=== PATIENT | female | born 1955 | race Two or more races ===

== ENCOUNTER 2024-03-05 13:55 | Emergency (ER) | payer OTHER ==
[~2024-03-05] VITALS: Ht 157.5 cm; Wt 136.3 kg
[2024-03-05 15:22] LABS: Alanine Aminotransferase 15 U/L (7-40); Albumin 4.4 g/dL (3.2-4.8); Alkaline Phosphatase 84 U/L (46-116); Anion Gap 10 (5-15); Aspartate Aminotransferase 17 U/L (13-40); BUN/Creatinine Ratio 25.7 (10.0-20.0); Bilirubin, Total 0.6 mg/dL (0.2-1.0); Blood Urea Nitrogen 35 mg/dL (9-23); Calcium 10.6 mg/dL (8.7-10.4); Carbon Dioxide 24 mmol/L (20-30); Chloride 104 mmol/L (98-107); Glucose 111 mg/dL (74-106); Lipase 34 U/L (12-53); Potassium 4.1 mmol/L (3.5-5.1); Sodium 138 mmol/L (136-145); Total Protein 7.7 g/dL (5.7-8.2)
[2024-03-05 16:15] LABS: Basophils # (auto) 0 10 ^3/uL (0-0.2); Basophils % (auto) 0.6 % (0.0-2.0); Eosinophils # (auto) 0.2 10 ^3/uL (0-0.8); Hematocrit 39.5 % (36.0-46.0); Hemoglobin 13.7 g/dL (12.2-16.2); Lymphocytes # (auto) 1.8 10 ^3/uL (0.4-5.4); Lymphocytes % (auto) 29.8 % (10.0-50.0); Mean Corpuscular Hemoglobin 31.1 pg (28.0-32.0); Mean Corpuscular Hgb Conc. 34.6 g/dL (32.0-36.0); Mean Corpuscular Volume 89.8 fL (80.0-100.0); Monocytes # (auto) 0.5 10 ^3/uL (0-1.3); Monocytes % (auto) 7.9 % (0.0-12.0); Neutrophils # (auto) 3.5 10 ^3/uL (1.6-8.6); Neutrophils % (auto) 57.7 % (37.0-80.0); Nucleated Red Blood Cells % 0.1 %; Red Cell Distribution Width 13.4 % (11.8-14.3)
[2024-03-05 16:35] LABS: Urine Bacteria None Seen /hpf (None Seen)
[2024-03-05 16:48] LABS: Urine Blood Negative /uL (Negative); Urine Clarity Clear (Clear); Urine Color Light-Yellow (Yellow); Urine Protein, UAD Negative (Negative); Urine Urobilinogen Normal (Negative); Urine WBC 6 /hpf (0 - 5)
[2024-03-05 21:19] VITALS: BP 99/62; PULSE 75; RESP 18; TEMP 97.9; O2SAT 96
[2024-03-05] MEDS: METOCLOPRAMIDE HCL 5MG/ml INJ 2ml VIAL IM ONE (21:22)
[2024-03-05] MEDS ORDERED: LEVO500T91 PO (21:52)
[2024-03-05] MEDS ORDERED: METO-281 PO (21:52)
== END 2024-03-05 22:29 | disposition home or self-care (01) ==
LOC: ER 13:55
DX: N39.0 Urinary tract infection, site not specified (principal)
CPT/HCPCS: 36415; 80053; 81001; 83605; 83690; 83880; 84484; 85025; 87086; 96372; 99283; J2765

== ENCOUNTER 2024-11-20 18:49 | Inpatient (IN) | payer OTHER ==
[~2024-11-20] VITALS: Ht 154.9 cm; Wt 140.5 kg
[~2024-11-20 18:49] MED LIST: LEVO500T91 PO; METO-281 PO
--- NOTE | 2024-11-20 20:56 | DVH ---
CHEST RADIOGRAPH Indication: gen weak Technique: Single frontal view of the chest was obtained COMPARISON: None FINDINGS: Lines and Tubes: None Lungs: Clear Pleura: No effusion. No pneumothorax. Cardiomediastinal contours: Cardiomegaly Bones: Unremarkable IMPRESSION: 1. No acute disease.
--- NOTE | 2024-11-20 20:58 | DVH ---
CLINICAL INDICATION: pain TECHNIQUE: 3 views of the right knee. Comparison: None FINDINGS/IMPRESSION: There is no evidence of acute fracture or dislocation. Severe tricompartmental degenerative arthrosis of the right knee.
--- NOTE | 2024-11-20 20:59 | DVH ---
EXAM: XY L KNEE 3V XRAY CLINICAL HISTORY: pain COMPARISON: None TECHNIQUE: XY L KNEE 3V XRAY Findings/Impression: 3 views of the left knee. There is no evidence of an acute fracture, dislocation, blastic, or lytic lesions. Marked joint space narrowing and osteoarthritis. No radiopaque foreign bodies. No joint effusion or superficial soft tissue abnormalities.
[2024-11-20 21:24] LABS: Basophils # (auto) 0 10 ^3/uL (0-0.2); Basophils % (auto) 0.4 % (0.0-2.0); Eosinophils # (auto) 0.2 10 ^3/uL (0-0.8); Eosinophils % (auto) 1.6 % (0.0-7.0); Hematocrit 38.5 % (36.0-46.0); Lymphocytes # (auto) 1.1 10 ^3/uL (0.4-5.4); Lymphocytes % (auto) 11.6 % (10.0-50.0); Mean Corpuscular Hemoglobin 30.4 pg (28.0-32.0); Mean Corpuscular Hgb Conc. 33.7 g/dL (32.0-36.0); Monocytes # (auto) 0.6 10 ^3/uL (0-1.3); Monocytes % (auto) 6.3 % (0.0-12.0); Neutrophils # (auto) 7.5 10 ^3/uL (1.6-8.6); Neutrophils % (auto) 80.1 % (37.0-80.0); Platelet Count (auto) 264 10^3/uL (140-450); Red Blood Cells 4.27 10^6/uL (4.0-5.20); Red Cell Distribution Width 14.1 % (11.8-14.3); White Blood Cell 9.4 10^3/uL (4.4-10.8)
[2024-11-20 21:35] LABS: Chloride 104 mmol/L (98-107); Potassium 4.7 mmol/L (3.5-5.1); Sodium 138 mmol/L (136-145)
[2024-11-20 21:36] LABS: Anion Gap 8 (5-15); Calcium 10.1 mg/dL (8.7-10.4); Carbon Dioxide 26 mmol/L (20-31)
[2024-11-20 21:41] LABS: BUN/Creatinine Ratio 22.8 (10.0-20.0); Blood Urea Nitrogen 23 mg/dL (9-23)
[2024-11-20 21:43] LABS: Creatine Kinase IFCC 83 U/L (34-145)
[2024-11-20 21:46] LABS: Glucose 191 mg/dL (74-106)
--- NOTE | 2024-11-20 23:44 | ED.PDOC ---
History of Present Illness HPI Comments 69-year-old female with history of diabetes, neuropathy, chronic knee pain, GERD, hypertension and morbid obesity brought in by EMS from home for evaluation of severe bilateral knee pain and inability to ambulate. Patient states that she is mostly wheelchair-bound but usually is able to ambulate a few steps and stand and transfer, however over the past several days she has been unable to stand and transfer or ambulate due to severe knee pain. She also notes subjective fever, dysuria, urinary frequency and a rash in her lower abdominal/inguinal area and left upper thigh area. She states she had a fever a few days ago. She denies any fall or trauma. She states that she is unable to perform activities of daily living due to her symptoms, and that her family is unable to care for her at home. Chief Complaint: Failure to Thrive Time Seen by MD: 20:09 Reviewed Notes: Nurses Notes, Lockstitch Sleeve Setter Notes Allergies: Coded Allergies: NO KNOWN ALLERGIES (Unverified , 03/05/24) Home Meds Active Scripts Metoclopramide Hcl (Reglan) 10 Mg Tab, 10 MG PO Q8HP PRN, #15 TAB Prov:ROCIO GARRETT PAC 03/05/24 Levofloxacin Hemihydrate (LEVAQUIN 500 MG) 500 Mg Tab, 1 TAB PO DAILY for 5 Days, #5 TAB Prov:ROCIO GARRETT PAC 03/05/24 Information Source: Patient, Emergency Med Personnel Mode of Arrival: EMS Past Medical History PAST MEDICAL HISTORY: DM, GERD, HTN, UTI'S Past Medical History (Other): Morbid obesity, chronic bilateral knee pain Surgical History: EMPLOYMENT RECRUITER History: No Pertinent EMPLOYMENT RECRUITER History Family History Family History: Reviewed,noncontributory to illness, No family hx of Cancer, No family hx of DM, No family hx of Heart krysten, No family hx of HTN, No family hx ofKidney krysten, No family hx of Liver krysten, No family hx of Lung krysten, No family hx of Stroke Social History Smoker: Non-Smoker Alcohol: Denies ETOH Use Drugs: Denies Drug Use Lives In: Home All Other Systems: Reviewed and Negative (Comprehensive systems review obtained and negative except for what is stated in the HPI.) Physical Exam General Appearance: No Apparent Distress, Obese HEENT: Other (Pupils and face symmetric. Moist mucous membranes.) Neck: Full Range of Motion, Normal Inspection Respiratory: Lungs Clear, No Accessory Muscle Use, No Respiratory Distress, Normal Breath Sounds Cardiovascular: No Edema, No JVD, Regular Rate/Rhythm Breast Exam: Deferred Gastrointestinal: Non Tender, Soft Genitalia: Deferred Pelvic: Deferred Rectal: Deferred Extremities: Normal range of motion, No pedal edema Neurologic: Alert (Oriented x4), Normal Affect, Normal Mood, Other (Moves all extremities. No gross focal deficit.) Cerebellar Function: NOT DONE Reflexes: NOT DONE Skin: Dry, Rash (Erythematous confluent rash in the lower abdominal and inguinal areas bilaterally. The left inguinal rash extends to the proximal/lateral upper thigh area. These areas are tender, erythematous and warm. No fluctuance or discharge.), Warm Lymphatic: NOT DONE Was a procedure done? Was a procedure done?: No Differential Dx Considerations may include: Knee arthritis, fracture, dislocation, soft tissue injury, UTI, kidney stone, electrolyte imbalance, sepsis, cellulitis, among others X-Ray, Labs, Meds, VS Vital Signs Date Time Temp Pulse Resp B/P (MAP) Pulse Ox O2 Delivery O2 Flow Rate FiO2 11/20/24 19:04 98.2 84 17 125/77 (93) 92 Lab Test 11/20/24 20:58 Range/Units White Blood Count 9.4 4.4-10.8 10^3/uL Red Blood Count 4.27 4.0-5.20 10^6/uL Hemoglobin 13.0 12.2-16.2 g/dL Hematocrit 38.5 36.0-46.0 % Mean Corpuscular Volume 90.0 80.0-100.0 fL Mean Corpuscular Hemoglobin 30.4 28.0-32.0 pg Mean Corpuscular Hemoglobin Concent 33.7 32.0-36.0 g/dL Red Cell Distribution Width 14.1 11.8-14.3 % Platelet Count 264 140-450 10^3/uL Mean Platelet Volume 6.6 L 6.9-10.8 fL Neutrophils (%) (Auto) 80.1 H 37.0-80.0 % Lymphocytes (%) (Auto) 11.6 10.0-50.0 % Monocytes (%) (Auto) 6.3 0.0-12.0 % Eosinophils (%) (Auto) 1.6 0.0-7.0 % Basophils (%) (Auto) 0.4 0.0-2.0 % Neutrophils # (Auto) 7.5 1.6-8.6 10 ^3/uL Lymphocytes # (Auto) 1.1 0.4-5.4 10 ^3/uL Monocytes # (Auto) 0.6 0-1.3 10 ^3/uL Eosinophils # (Auto) 0.2 0-0.8 10 ^3/uL Basophils # (Auto) 0 0-0.2 10 ^3/uL Nucleated Red Blood Cells 0.0 % Sodium Level 138 136-145 mmol/L Potassium Level 4.7 3.5-5.1 mmol/L Chloride Level 104 98-107 mmol/L Carbon Dioxide Level 26 20-31 mmol/L Anion Gap 8 5-15 Blood Urea Nitrogen 23 9-23 mg/dL Creatinine 1.01 0.550-1.02 mg/dL Glomerular Filtration Rate Calc 60 >90 mL/min BUN/Creatinine Ratio 22.8 H 10.0-20.0 Serum Glucose 191 H 74-106 mg/dL Lactic Acid Level 0.9 0.4-2.0 mmol/L Calcium Level 10.1 8.7-10.4 mg/dL Creatine Kinase 83 34-145 U/L Troponin I High Sensitivity 3 L </=34 ng/L B-Type Natriuretic Peptide 28.24 0-100 pg/mL PROCEDURE(s): CXRP - CHEST PORTABLE REASON: gen weak ORDER NUMBER(s): [id number], ACCESSION NUMBER(s): [id number] CHEST RADIOGRAPH Indication: gen weak Technique: Single frontal view of the chest was obtained COMPARISON: None FINDINGS: Lines and Tubes: None Lungs: Clear Pleura: No effusion. No pneumothorax. Cardiomediastinal contours: Cardiomegaly Bones: Unremarkable IMPRESSION: 1. No acute disease. EDURE(s): LKNE3 - L KNEE 3V XRAY REASON: pain ORDER NUMBER(s): [id number], ACCESSION NUMBER(s): [id number] EXAM: XY L KNEE 3V XRAY CLINICAL HISTORY: pain COMPARISON: None TECHNIQUE: XY L KNEE 3V XRAY Findings/Impression: 3 views of the left knee. There is no evidence of an acute fracture, dislocation, blastic, or lytic lesions. Marked joint space narrowing and osteoarthritis. No radiopaque foreign bodies. No joint effusion or superficial soft tissue abnormalities. EDURE(s): RKN3 - R KNEE 3V XRAY REASON: pain ORDER NUMBER(s): [id number], ACCESSION NUMBER(s): [id number] CLINICAL INDICATION: pain TECHNIQUE: 3 views of the right knee. Comparison: None FINDINGS/IMPRESSION: There is no evidence of acute fracture or dislocation. Severe tricompartmental degenerative arthrosis of the right knee. ATED BY: RALPH HENAO MD X-Ray, Labs, Meds, VS Comment 69-year-old female with a history of diabetes, neuropathy, chronic bilateral knee arthritis, hypertension, GERD, morbid obesity brought in by EMS from home complaining of severe knee pain making her unable to ambulate or transfer or perform most of her activities of daily living. Patient also reports dysuria, urinary frequency, fever, nausea, dizziness and a bilateral inguinal rash. Vitals remarkable for oxygen saturation 92% on room air Exam remarkable for a bilateral inguinal erythematous rash extending to the left upper lateral thigh area Rhythm strip independently interpreted by me: Sinus rhythm, rate 84, no ectopy. Chest x-ray unremarkable Left knee x-ray Findings/Impression: 3 views of the left knee. There is no evidence of an acute fracture, dislocation, blastic, or lytic les ions. Marked joint space narrowing and osteoarthritis. No radiopaque foreign bodies. No joint effusion or superficial soft tissue abnormalities. Right knee x-ray FINDINGS/IMPRESSION: There is no evidence of acute fracture or dislocation. Severe tricompartmental degenerative arthrosis of the right knee. CBC unremarkable, metabolic panel remarkable for glucose 191, troponin negative, total CK normal, BNP normal, lactate normal UA pending Patient treated with the following in the ED: Morphine 4 mg IV, Zofran 4 mg IV, Zosyn 4.5 g IV On re-evaluation, patient states pain has improved. Vitals were stable. Plan is to admit the patient for IV antibiotics to treat a presumptive UTI and cellulitis. Patient will also benefit from PT/OT evaluation and possible transfer to a half-way facility versus home health arrangements on discharge. Time of 1ST Reevaluation: 23:40 Reevaluation 1ST: Improved Patient Education/Counseling: Diagnosis, Treatment Family Education/Counseling: No Family Present Departure 1 Departure Time of Disposition: 23:00 Impression: Primary Impression: Bilateral knee pain Qualified Codes: M25.561 - Pain in right knee; M25.562 - Pain in left knee; G89.29 - Other chronic pain Additional Impressions: Cellulitis of groin, left Cellulitis of groin, right Cellulitis of left thigh UTI (urinary tract infection) Qualified Codes: N39.0 - Urinary tract infection, site not specified Risk for falls Impaired activities of daily living Disposition: ADMITTED INPATIENT Admit to: Med Surg Condition: Guarded Critical Care Note Critical Care Time?: No Stability Stability form required: No Heart Score Heart Score: Heart Score Response (Comments) Value History N/A 0 EKG N/A 0 Age N/A 0 Risk Factors N/A 0 Troponin N/A 0 Total 0 THELMA PICKENS MD Nov 20, 2024 23:44
[2024-11-21 02:06] LABS: Erythrocyte Sedimentation Rate 28 mm/hr (0-20)
--- NOTE | 2024-11-21 03:28 | DVH ---
EXAM: CT THORACIC SPINE WO CONTRAS HISTORY: FALL COMPARISON: None CTDIvol 38.59 mGy, DLP 2837.70 mGy*cm. TECHNIQUE: Multiple axial CT images of the spine were obtained using bone algorithm. Axial and coron al reformatting was done. Bone and soft tissue windows were reviewed. FINDINGS: No CT evidence of definite acute fracture, spinal dislocation, or significant appearing acute subluxa tion is seen. The visualized paraspinal soft tissues are grossly unremarkable. Multilevel degenerative changes of the spine. IMPRESSION: 1. No definite CT evidence of acute fracture or dislocation of the bony thoracic spine.
--- NOTE | 2024-11-21 03:30 | DVH ---
EXAM: CT LS SPINE WO CONTRAST HISTORY: FALL COMPARISON: None CTDIvol 38.94 mGy, DLP 2837.7 mGy*cm. TECHNIQUE: Multiple axial CT images of the spine were obtained using bone algorithm. Axial and coron al reformatting was done. Bone and soft tissue windows were reviewed. FINDINGS: No CT evidence of definite acute fracture, spinal dislocation, or significant appearing acute subluxa tion is seen. The visualized paraspinal soft tissues are grossly unremarkable. Multilevel degenerative changes of the spine disc osteophyte, facet arthropathy uncovertebral spurri ng causing significant canal narrowing and neural foraminal stenosis. IMPRESSION: 1. No definite CT evidence of acute fracture or dislocation of the bony lumbar spine. 2. Advanced spondylotic change.
[2024-11-21 03:46] LABS: Basophils # (auto) 0.1 10 ^3/uL (0-0.2); Basophils % (auto) 0.7 % (0.0-2.0); Eosinophils # (auto) 0.2 10 ^3/uL (0-0.8); Eosinophils % (auto) 2.1 % (0.0-7.0); Hematocrit 37.8 % (36.0-46.0); Hemoglobin 12.7 g/dL (12.2-16.2); Lymphocytes % (auto) 23.9 % (10.0-50.0); Mean Corpuscular Hgb Conc. 33.5 g/dL (32.0-36.0); Mean Corpuscular Volume 89.6 fL (80.0-100.0); Monocytes # (auto) 0.8 10 ^3/uL (0-1.3); Neutrophils # (auto) 5.3 10 ^3/uL (1.6-8.6); Neutrophils % (auto) 64.3 % (37.0-80.0); Nucleated Red Blood Cells % 0.1 %; Platelet Count (auto) 274 10^3/uL (140-450); Red Blood Cells 4.22 10^6/uL (4.0-5.20); Red Cell Distribution Width 14.3 % (11.8-14.3); White Blood Cell 8.3 10^3/uL (4.4-10.8)
[2024-11-21 03:51] LABS: Alanine Aminotransferase 15 U/L (7-40); Albumin 4.2 g/dL (3.2-4.8); Alkaline Phosphatase 107 U/L (46-116); Anion Gap 8 (5-15); Aspartate Aminotransferase 14 U/L (13-40); BUN/Creatinine Ratio 27.6 (10.0-20.0); Carbon Dioxide 27 mmol/L (20-31); Chloride 105 mmol/L (98-107); Potassium 4.6 mmol/L (3.5-5.1); Sodium 140 mmol/L (136-145)
[2024-11-21 03:52] LABS: Bilirubin, Total 0.6 mg/dL (0.2-1.0); Total Protein 7.1 g/dL (5.7-8.2)
[2024-11-21 03:55] LABS: Blood Urea Nitrogen 24 mg/dL (9-23); Calcium 10.5 mg/dL (8.7-10.4); Glucose 136 mg/dL (74-106)
--- NOTE | 2024-11-21 04:39 | DVHHPRES ---
History of Present Illness Resident Creating Document: STEPHANIA RICHARD RESIDENT History of Present Illness 69-year-old with past medical history of diabetes, hypertension obesity came to the ED because according to her she had a fall today. She stated that she was in the bathroom and trying to reach the commode she had a fall, landing in her buttocks at 3 pm aprox. Patient states that she is not being able to walk for months due to diabetic neuropathy and her knees are swollen since months as well, she stated that a year ago she twisted left knee. She also notes subjective fever,urinary frequency and a rash in her lower abdominal/inguinal area and left upper thigh area. She states that she is unable to perform activities of daily living due to her symptoms, and that her family is unable to care for her at home. Home meds: benazepril, metformin and aspirin 81 mg Smoke: Quit ALCOHOL: rare Drugs: None Lives: with Family Review of Systems Constitutional: No: Fever, Chills, Sweats, Weakness, Malaise, Other Eyes: No: Pain, Vision change, Conjunctivae inflammation, Eyelid inflammation, Other, Redness ENT: No: Ear pain, Ear discharge, Nose pain, Nose discharge, Nose congestion, Mouth pain, Mouth swelling, Throat pain, Throat swelling, Other Respiratory: No: Cough, Dry, Shortness of breath, SOB with excertion, Wheezing, Hemoptysis, Pleuritic Pain, Sputum, Wheezing, Other Cardiovascular: No: Chest Pain, Palpitations, Orthopnea, Paroxysmal Noc. Dyspnea, Edema, Lt Headedness, Other Gastrointestinal: No: Nausea, Vomiting, Abdominal Pain, Diarrhea, Constipation, Melena, Hematochezia, Other Genitourinary: No Dysuria; Frequency; No Incontinence, No Hematuria, No Retention, No Other Musculoskeletal: No: other, neck pain, shoulder pain, arm pain, back pain, hand pain, leg pain, foot pain Skin: No: Rash, Lesions, Jaundice, Bruising, Other Neurological: No: Weakness, Numbness, Incoordination, Change in speech, Confusion, Seizures, Other Allergies: Coded Allergies: NO KNOWN ALLERGIES (Unverified , 03/05/24) Medications Current Medications Medications Dose Ordered Sig/Nelida Route Start Time Stop Time Status Last Admin Dose Admin Ceftriaxone Sodium 50 ml @ 100 mls/hr DAILY IV 11/21/24 10:00 Acetaminophen 650 mg Q6HP PRN PO 11/21/24 00:30 Ketorolac Tromethamine 15 mg TID PRN IV 11/21/24 06:00 11/26/24 05:59 Exam Vital Signs Vital Signs Date Time Temp Pulse Resp B/P (MAP) Pulse Ox O2 Delivery O2 Flow Rate FiO2 11/20/24 19:04 98.2 84 17 125/77 (93) 92 General Appearance: Alert, Oriented X3, mild distress HEENT: Atraumatic, PERRLA, EOMI, Mucous membr. moist/pink Respiratory: Clear to auscultation, Normal air movement Cardiovascular: Regular rate, Normal S1 Abdominal: Normal bowel sounds, Soft Extremities: No clubbing, No cyanosis, Other (severe tenderness at palpation in the lumbar spine, bilateral edema in the knees, severe tenderness ) Skin: No rashes (rash in the inguinal area), No breakdown Neuro: Normal gait, Normal speech Psych/Mental Status: Mental status NL Labs/Xrays Labs Test 11/21/24 01:07 11/20/24 20:58 Range/Units White Blood Count 8.3 4.4-10.8 10^3/uL Red Blood Count 4.22 4.0-5.20 10^6/uL Hemoglobin 12.7 12.2-16.2 g/dL Hematocrit 37.8 36.0-46.0 % Mean Corpuscular Volume 89.6 80.0-100.0 fL Mean Corpuscular Hemoglobin 30.0 28.0-32.0 pg Mean Corpuscular Hemoglobin Concent 33.5 32.0-36.0 g/dL Red Cell Distribution Width 14.3 11.8-14.3 % Platelet Count 274 140-450 10^3/uL Mean Platelet Volume 7.3 6.9-10.8 fL Neutrophils (%) (Auto) 64.3 37.0-80.0 % Lymphocytes (%) (Auto) 23.9 10.0-50.0 % Monocytes (%) (Auto) 9.0 0.0-12.0 % Eosinophils (%) (Auto) 2.1 0.0-7.0 % Basophils (%) (Auto) 0.7 0.0-2.0 % Neutrophils # (Auto) 5.3 1.6-8.6 10 ^3/uL Lymphocytes # (Auto) 2.0 0.4-5.4 10 ^3/uL Monocytes # (Auto) 0.8 0-1.3 10 ^3/uL Eosinophils # (Auto) 0.2 0-0.8 10 ^3/uL Basophils # (Auto) 0.1 0-0.2 10 ^3/uL Nucleated Red Blood Cells 0.1 % Erythrocyte Sedimentation Rate 28 H 0-20 mm/hr Sodium Level 140 136-145 mmol/L Potassium Level 4.6 3.5-5.1 mmol/L Chloride Level 105 98-107 mmol/L Carbon Dioxide Level 27 20-31 mmol/L Anion Gap 8 5-15 Blood Urea Nitrogen 24 H 9-23 mg/dL Creatinine 0.87 0.550-1.02 mg/dL Glomerular Filtration Rate Calc 72 >90 mL/min BUN/Creatinine Ratio 27.6 H 10.0-20.0 Serum Glucose 136 H 74-106 mg/dL Calcium Level 10.5 H 8.7-10.4 mg/dL Total Bilirubin 0.6 0.2-1.0 mg/dL Aspartate Amino Transferase (AST) 14 13-40 U/L Alanine Aminotransferase (ALT) 15 7-40 U/L Alkaline Phosphatase 107 46-116 U/L Total Protein 7.1 5.7-8.2 g/dL Albumin 4.2 3.2-4.8 g/dL Thyroid Stimulating Hormone (TSH) 0.78 0.55-4.78 uIU/mL Lactic Acid Level 0.9 0.4-2.0 mmol/L Creatine Kinase 83 34-145 U/L Troponin I High Sensitivity 3 L </=34 ng/L C-Reactive Protein High Sensitivity 0.77 <1.0 mg/dL B-Type Natriuretic Peptide 28.24 0-100 pg/mL Assessment/Plan Assessment/Plan #Mechanical fall #Intractable pain #bone fracture ruled out #UTI? #H/o HTN #DM type 2 #Diabetic neuropathy? #Severe Physical deconditioning #Severe bilateral OA in the knees #inguinal rash: contact dermatitis Images: CT scan throco/lumbar ruled out fractures bilateral knee xray: OA No acute phase reactants elevated Admit Med/surg Pending UA and urine culture Ceftriaxone IV Pain medication Pending Hba1c Hold on BP meds for now Cream due to inguinal rash Case discussed with Dr Erwin Time spent on care 23 min Plan discussed with: Patient, Other My Orders Orders - STEPHANIA RICHARD RESIDENT Procedure Category Date Status Time Admit ADMIT 11/21/24 Transmitted 00:23 Urine Bacterial MARÍA 11/21/24 Logged Culture 00:23 Ceftriaxone 1gm/50ml PHA 11/21/24 In Process D5w (Rocephin) 10:00 Consistent DIET 11/21/24 Transmitted Carb(Ccho)Diabetes Breakfast Acetaminophen Tablet PHA 11/21/24 In Process (Tylenol Tablet) 00:30 Ketorolac Injection PHA 11/21/24 In Process (Toradol Injection) 06:00 Ls Spine Wo Contrast CT 11/21/24 Resulted 00:[address] 11/21/24 Resulted Contras 00:56 Hemoglobin A1c LAB 11/21/24 In Process 03:22 Date of Service: Nov 21, 2024 Billing Provider: JACKIE ERWIN MD Common Visit Codes: [id number] INP/OBS CARE (HIGH) Secondary Visit Codes: [id number] CARE PLAN 30 MINUTES STEPHANIA RICHARD RESIDENT Nov 21, 2024 04:39 JACKIE ERWIN MD Nov 21, 2024 19:58
[2024-11-21] MEDS: PIPERACILLIN-TAZO 4.5GM 100 ML IV ONE (05:46)
[2024-11-21] MEDS: NYSTATIN TOPICAL CREAM 15GM TOP ONE (05:47)
[2024-11-21] MEDS: ONDANSETRON HCL 4 MG/2 ML VIAL IV ONE (05:47)
[2024-11-21] MEDS: MORPHINE SULFATE 4 MG/ML SYR/VIAL IV ONE (05:47)
[2024-11-21 05:51] VITALS: PULSE 84; RESP 19; O2SAT 97
[2024-11-21] MEDS: KETOROLAC TROMETH 30 MG/ML 1ML VIAL IV PRN (08:13)
[2024-11-21 08:21] VITALS: PULSE 83; RESP 20; O2SAT 90
[2024-11-21] MEDS: cefTRIAXone 1GM/50ML D5W 50 ML IV SCH (10:45)
--- NOTE | 2024-11-21 20:27 | DVHPNRES ---
Progress Note Date Seen: Nov 21, 2024 Resident Creating Document: GERTRUDE ODONNELL RESIDENT Medical Necessity Reason Pt with a Central, PICC or Fol: No Subjective Review of Systems 69-year-old with past medical history of diabetes, hypertension obesity came to the ED because according to her she had a fall today. She stated that she was in the bathroom and trying to reach the commode she had a fall, landing in her buttocks at 3 pm aprox. Patient states that she is not being able to walk for months due to diabetic neuropathy and her knees are swollen since months as well, she stated that a year ago she twisted left knee. She also notes subjective fever,urinary frequency and a rash in her lower abdominal/inguinal area and left upper thigh area. She states that she is unable to perform activities of daily living due to her symptoms, and that her family is unable to care for her at home. Significant lab workup revealed HGB A1c 5.9, troponin negative. Home meds: benazepril, metformin and aspirin 81 mg Smoke: Quit ALCOHOL: rare Drugs: None Lives: with Family Patient was seen today at the bedside. Cardiovascular- deny acute chest pain or shortness of breath or cough or palpitation Respiratory denies cough or short of breath or wheezing Gastrointestinal- denies any rectal bleeding, nausea or vomiting Musculoskeletal-bilateral knee pain Neurological- denies acute dysarthria, dysphagia, change in vision Psychiatry- denies depression or SI or HI Skin- denies acute rash or purpura Objective vital signs Vital Sign Date Time Temp Pulse Resp B/P (MAP) Pulse Ox O2 Delivery O2 Flow Rate FiO2 11/21/24 12:00 82 18 122/72 (89) 90 11/21/24 08:21 Room Air* 0 21 11/21/24 08:16 98.0 98.0 medications Current Medications Medications Dose Ordered Sig/Nelida Route Start Time Stop Time Status Last Admin Dose Admin Ceftriaxone Sodium 50 ml @ 100 mls/hr DAILY IV 11/21/24 10:00 11/21/24 10:45 100 MLS/HR Acetaminophen 650 mg Q6HP PRN PO 11/21/24 00:30 Ketorolac Tromethamine 15 mg TID PRN IV 11/21/24 06:00 11/26/24 05:59 11/21/24 17:35 15 MG Examination General examination- awake, alert, oriented, conversant HEENT- PEERLA, no acute nasal discharge Cardiovascular- S1-S2 audible, rate and rhythm regular, no murmur Respiratory- CTAB, no wheeze or rhonchi Gastrointestinal-nontender, bowel sound+. Nondistended Musculoskeletal-no acute joint swelling or tenderness or redness# Lower extremity- bilateral knee tenderness+, no redness or rash Neurological- cranial nerves intact, no acute dysarthria or dysphagia Psychiatry- denies depression or SI or HI Skin- no acute rash or purpura laboratory and microbiology Laboratory Tests 11/21/24 01:07 Test 11/21/24 01:07 Range/Units Serum Glucose 136 H 74-106 mg/dL Problem List/Assessment/Plan Problem List/Assessment/Plan Assessment #Mechanical fall #Intractable knee pain #bone fracture ruled out #UTI? Dysuria #H/o HTN #DM type 2 #Diabetic neuropathy? #Severe Physical deconditioning #Severe bilateral OA in the knees #inguinal rash: contact dermatitis Plan Ordered SNF for physical therapy on discharge Continue pain medication as prescribed Continue ceftriaxone 1 g IV daily Continue other medications Pending uterine CS Goals of care/advance care planning; FULL CODE; discussed with the patient >15 minutes PUD prophylaxis: DVT prophylaxis: Lovenox Plan discussed with Dr. Arboleda , nursing staff, patient Total time spent on patient evaluation, chart review, assessment and plan, discussion discussion >31 minutes Plan discussed with: Patient Plan discussed with: Patient, Other (RN) My Orders My Orders Orders - GERTRUDE ODONNELL Procedure Category Date Status Time Pt Request For Service PT 11/21/24 Logged 06:42 Drug Screen LAB 11/22/24 Verified 04:00 Pt Request For Service PT 11/21/24 Logged 11:55 * Ged Preparation Teacher CONS 11/21/24 Transmitted Consult Date of Service: Nov 21, 2024 Billing Provider: SHU BYRNES MD Common Visit Codes: [id number] INP/OBS CARE(HIGH) GERTRUDE ODONNELL Nov 21, 2024 20:27 SHU BYRNES MD Nov 21, 2024 23:49
[2024-11-21 22:20] VITALS: BP 114/61; PULSE 78; RESP 19; TEMP 98.3; O2SAT 90
[2024-11-21] MEDS ORDERED: ETOD-182 PO (22:30)
[2024-11-21] MEDS ORDERED: ASPI-325 PO (22:30)
[2024-11-21] MEDS ORDERED: BENA20TA13 PO (22:30)
[2024-11-21] MEDS ORDERED: CHOL1CAP21 PO (22:30)
[2024-11-21] MEDS ORDERED: OMEP1CAP70 PO (22:30)
[2024-11-21] MEDS: ENOXAPARIN SOD 40 MG/0.4 ML SYRINGE SC ONE (23:15)
[2024-11-22] VITALS (7 sets, daily range): BP systolic 104–132; BP diastolic 50–82; PULSE 69–90; RESP 16–19; TEMP 97.8–98.3; O2SAT 92–97
[2024-11-22] MEDS: ACETAMINOPHEN 325 MG TAB PO PRN (03:56)
[2024-11-22 06:24] LABS: Anion Gap 9 (5-15); Carbon Dioxide 27 mmol/L (20-31); Chloride 104 mmol/L (98-107); Potassium 4.9 mmol/L (3.5-5.1); Sodium 140 mmol/L (136-145)
[2024-11-22 06:31] LABS: BUN/Creatinine Ratio 38.1 (10.0-20.0)
[2024-11-22 06:32] LABS: Blood Urea Nitrogen 40 mg/dL (9-23); Glucose 133 mg/dL (74-106)
[2024-11-22 06:38] LABS: Basophils # (auto) 0 10 ^3/uL (0-0.2); Basophils % (auto) 0.4 % (0.0-2.0); Eosinophils # (auto) 0.2 10 ^3/uL (0-0.8); Eosinophils % (auto) 2.7 % (0.0-7.0); Hematocrit 39.6 % (36.0-46.0); Hemoglobin 12.9 g/dL (12.2-16.2); Lymphocytes # (auto) 1.4 10 ^3/uL (0.4-5.4); Lymphocytes % (auto) 15.7 % (10.0-50.0); Mean Corpuscular Hemoglobin 29.7 pg (28.0-32.0); Mean Corpuscular Hgb Conc. 32.6 g/dL (32.0-36.0); Monocytes # (auto) 0.8 10 ^3/uL (0-1.3); Monocytes % (auto) 9.5 % (0.0-12.0); Neutrophils # (auto) 6.2 10 ^3/uL (1.6-8.6); Neutrophils % (auto) 71.7 % (37.0-80.0); Nucleated Red Blood Cells % 0.1 %; Platelet Count (auto) 264 10^3/uL (140-450); Red Blood Cells 4.35 10^6/uL (4.0-5.20); Red Cell Distribution Width 14.2 % (11.8-14.3); White Blood Cell 8.6 10^3/uL (4.4-10.8)
[2024-11-22] MEDS: ENOXAPARIN SOD 40 MG/0.4 ML SYRINGE SC SCH (09:55)
--- NOTE | 2024-11-22 15:13 | DVHPN2 ---
Date of Progress Note Date of Progress Note Date of Progress Note: 11/22/24 Date of Admission Date of Admission Date of Admission: Date of Admission: Nov 21, 2024 at 00:23 Overnight Events Overnight events Overnight Events Pt bedrest Past Medical History Past Medical History Past Medical History 69 F, morbid obesity, bilateral chronic knee endstage OA, wheelchair dependent several years, weight over 300 and states lost 100 over past year walks a few feet with walker each day, admitted on 11/21/24 for UTI Family History Family History Family History: FH: colon cancer G8 MOTHER, FH: heart attack G8 MOTHER, FH: lung cancer GRANDMOTHER, FH: lung disease G8 FATHER, Allergies: Coded Allergies: NO KNOWN ALLERGIES (Unverified , 03/05/24) Home Meds Reported Medications Cholecalciferol (Vitamin D3) 50,000 Unit Cap, 1 CAP PO QWEEKLY 11/21/24 Aspirin (Aspirin Low Dose) 81 Mg Tab, 1 TAB PO DAILY 11/21/24 Benazepril & Hydrochlorothiazi (Benazepril Hcl/Hydrochlor) 1 Tab Tab, 1 TAB PO DAILY 11/21/24 Omeprazole (Omeprazole Dr) 20 Mg Cap, 40 MG PO DAILY 11/21/24 Etodolac (Etodolac) 400 Mg Tab, 1 TAB PO Q12HR 11/21/24 Current Medications Current Medications Medications (Trade) Dose Ordered Sig/Nelida Route PRN Reason Start Time Stop Time Status Last Admin Enoxaparin Sodium (Lovenox) 40 mg DAILY SC 11/22/24 10:00 11/22/24 09:55 Physical Examination General Examination: Last Vital sign Vital Signs Date Time Temp Pulse Resp B/P (MAP) Pulse Ox O2 Delivery O2 Flow Rate FiO2 11/22/24 09:00 98.3 82 16 122/66 (84) 95 98.3 11/22/24 08:00 Nasal Cannula* 2 28 General: General: No apparent distress, appears comfortable. Cooperative. Extremities: Bilateral knees, moderate swelling, NVI, minimal motion from 35-45, near ankylosis, moderate atrophy B legs Skin: intact Neurological Examination: Neurological Examination: Mental Status: Cranial Nerves: Motor Examination: Reflexes: Sensory: Coordination: Gait: NVI Labs: Labs: Laboratory Tests Test 11/20/24 20:58 11/21/24 01:07 11/21/24 07:34 11/22/24 05:08 Range/Units White Blood Count 9.4 8.3 8.6 4.4-10.8 10^3/uL Red Blood Count 4.27 4.22 4.35 4.0-5.20 10^6/uL Hemoglobin 13.0 12.7 12.9 12.2-16.2 g/dL Hematocrit 38.5 37.8 39.6 36.0-46.0 % Mean Corpuscular Volume 90.0 89.6 91.0 80.0-100.0 fL Mean Corpuscular Hemoglobin 30.4 30.0 29.7 28.0-32.0 pg Mean Corpuscular Hemoglobin Concent 33.7 33.5 32.6 32.0-36.0 g/dL Red Cell Distribution Width 14.1 14.3 14.2 11.8-14.3 % Platelet Count 264 274 264 140-450 10^3/uL Mean Platelet Volume 6.6 L 7.3 7.1 6.9-10.8 fL Neutrophils (%) (Auto) 80.1 H 64.3 71.7 37.0-80.0 % Lymphocytes (%) (Auto) 11.6 23.9 15.7 10.0-50.0 % Monocytes (%) (Auto) 6.3 9.0 9.5 0.0-12.0 % Eosinophils (%) (Auto) 1.6 2.1 2.7 0.0-7.0 % Basophils (%) (Auto) 0.4 0.7 0.4 0.0-2.0 % Neutrophils # (Auto) 7.5 5.3 6.2 1.6-8.6 10 ^3/uL Lymphocytes # (Auto) 1.1 2.0 1.4 0.4-5.4 10 ^3/uL Monocytes # (Auto) 0.6 0.8 0.8 0-1.3 10 ^3/uL Eosinophils # (Auto) 0.2 0.2 0.2 0-0.8 10 ^3/uL Basophils # (Auto) 0 0.1 0 0-0.2 10 ^3/uL Nucleated Red Blood Cells 0.0 0.1 0.1 % Sodium Level 138 140 140 136-145 mmol/L Potassium Level 4.7 4.6 4.9 3.5-5.1 mmol/L Chloride Level 104 105 104 98-107 mmol/L Carbon Dioxide Level 26 27 27 20-31 mmol/L Anion Gap 8 8 9 5-15 Blood Urea Nitrogen 23 24 H 40 #H 9-23 mg/dL Creatinine 1.01 0.87 1.05 H 0.550-1.02 mg/dL Glomerular Filtration Rate Calc 60 72 57 >90 mL/min BUN/Creatinine Ratio 22.8 H 27.6 H 38.1 H 10.0-20.0 Serum Glucose 191 H 136 H 133 H 74-106 mg/dL Lactic Acid Level 0.9 0.4-2.0 mmol/L Calcium Level 10.1 10.5 H 10.0 8.7-10.4 mg/dL Creatine Kinase 83 34-145 U/L Troponin I High Sensitivity 3 L </=34 ng/L C-Reactive Protein High Sensitivity 0.77 <1.0 mg/dL B-Type Natriuretic Peptide 28.24 0-100 pg/mL Erythrocyte Sedimentation Rate 28 H 0-20 mm/hr Hemoglobin A1c 5.9 H <5.7 % A1C Total Bilirubin 0.6 0.2-1.0 mg/dL Aspartate Amino Transferase (AST) 14 13-40 U/L Alanine Aminotransferase (ALT) 15 7-40 U/L Alkaline Phosphatase 107 46-116 U/L Total Protein 7.1 5.7-8.2 g/dL Albumin 4.2 3.2-4.8 g/dL Thyroid Stimulating Hormone (TSH) 0.78 0.55-4.78 uIU/mL Plasma/Serum Blood Alcohol < 3.0 <10 mg/dL Imaging Imagin11/21/24 Xray , bilateral knees, OA, 3 comp, endstage Assessment/Plan Assessment/Plan Assessment and Plan:Silva Kaye is a 69 year old female admitted on 11/21/24 for UTI, chronic severe bilateral knee OA, 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
--- NOTE | 2024-11-22 16:28 | DVHPNRES ---
Progress Note Date Seen: Nov 22, 2024 Resident Creating Document: GERTRUDE ODONNELL RESIDENT Medical Necessity Reason Pt with a Central, PICC or Fol: No Subjective Review of Systems Patient is 69-year-old female with past medical history of diabetes, hypertension obesity came to the ED because according to her she had a fall today. She stated that she was in the bathroom and trying to reach the commode she had a fall, landing in her buttocks at 3 pm aprox. Patient states that she is not being able to walk for months due to diabetic neuropathy and her knees are swollen since months as well, she stated that a year ago she twisted left knee. She also notes subjective fever,urinary frequency and a rash in her lower abdominal/inguinal area and left upper thigh area. She states that she is unable to perform activities of daily living due to her symptoms, and that her family is unable to care for her at home. Significant lab workup revealed HGB A1c 5.9, troponin negative. Home meds: benazepril, metformin and aspirin 81 mg Smoke: Quit ALCOHOL: rare Drugs: None Lives: with Family Patient was seen today at the bedside. Cardiovascular- deny acute chest pain or shortness of breath or cough or palpitation Respiratory denies cough or short of breath or wheezing Gastrointestinal- denies any rectal bleeding, nausea or vomiting Musculoskeletal-bilateral knee pain Neurological- denies acute dysarthria, dysphagia, change in vision Psychiatry- denies depression or SI or HI Skin- denies acute rash or purpura Patient was seen today for clinical evaluation. Labs and chart reviewed. Patient with ongoing dysuria. Patient complains of ongoing knee pain 7 to 8/10. X-ray left knee -Marked joint space narrowing and osteoarthritis.Patient is more aggressive pain managemen. Patient is on ceftriaxone 1 g IV daily for suspected UTI, no fever noted overnight. pending urine culture sensitivity report. Status post surgical consult. As per orthopedic doctor patient is not as candidate for surgery. Follow up ortho p.r.n.. Objective vital signs Vital Sign Date Time Temp Pulse Resp B/P (MAP) Pulse Ox O2 Delivery O2 Flow Rate FiO2 11/22/24 09:00 98.3 82 16 122/66 (84) 95 98.3 11/22/24 08:00 Nasal Cannula* 2 28 Total Intake and Output 11/21/24 11/21/24 11/22/24 15:00 23:00 07:00 Intake Total 50 ml 300 ml Balance 50 ml 300 ml medications Current Medications Medications Dose Ordered Sig/Nelida Route Start Time Stop Time Status Last Admin Dose Admin Ceftriaxone Sodium 50 ml @ 100 mls/hr DAILY IV 11/21/24 10:00 11/22/24 09:54 100 MLS/HR Acetaminophen 650 mg Q6HP PRN PO 11/21/24 00:30 11/22/24 03:56 650 MG Ketorolac Tromethamine 15 mg TID PRN IV 11/21/24 06:00 11/26/24 05:59 11/22/24 11:18 15 MG Enoxaparin Sodium 40 mg DAILY SC 11/22/24 10:00 11/22/24 09:55 40 MG Examination General examination- awake, alert, oriented, conversant HEENT- PEERLA, no acute nasal discharge Cardiovascular- S1-S2 audible, rate and rhythm regular, no murmur Respiratory- CTAB, no wheeze or rhonchi Gastrointestinal-nontender, bowel sound+. Nondistended Musculoskeletal-no acute joint swelling or tenderness or redness# Lower extremity- bilateral knee tenderness+, no redness or rash Neurological- cranial nerves intact, no acute dysarthria or dysphagia Psychiatry- denies depression or SI or HI Skin- no acute rash or purpura laboratory and microbiology Laboratory Tests 11/22/24 05:08 Test 11/22/24 05:08 Range/Units Serum Glucose 133 H 74-106 mg/dL Microbiology Date/Time Source Procedure Growth Status 11/20/24 23:17 Blood Blood Culture - Preliminary NO GROWTH AFTER 24 HOURS OF INCUBATION. Resulted Problem List/Assessment/Plan Problem List/Assessment/Plan Assessment #Mechanical fall #Intractable knee pain #bone fracture ruled out #UTI? Dysuria #H/o HTN #DM type 2 #Diabetic neuropathy? #Severe Physical deconditioning #Severe bilateral OA in the knees #inguinal rash: contact dermatitis Plan Plan is to disposition to sleep on discharge Continue pain medication as prescribed Continue ceftriaxone 1 g IV daily Continue other medications Pending urine CS Continue physical therapy Status post surgical consult. As per orthopedic doctor patient is not as candidate for surgery. Follow up ortho p.r.n.. Goals of care/advance care planning; FULL CODE; discussed with the patient >15 minutes PUD prophylaxis: DVT prophylaxis: Lovenox Plan discussed with Dr. Arboleda , nursing staff, patient Total time spent on patient evaluation, chart review, assessment and plan, discussion discussion >31 minutes Plan discussed with: Patient Plan discussed with: Patient, Daughter (RN), Other My Orders My Orders Orders - GERTRUDE ODONNELL Procedure Category Date Status Time Enoxaparin Sodium PHA 11/22/24 In Process (Lovenox) 10:00 * Orthopedic Consult CONS 11/22/24 Transmitted 10:52 Communication Order ORDERS 11/22/24 Transmitted 14:07 Date of Service: Nov 22, 2024 Billing Provider: SHU BYRNES MD Common Visit Codes: [id number] INP/OBS CARE(HIGH) GERTRUDE ODONNELL Nov 22, 2024 16:28 SHU BYRNES MD Dec 04, 2024 01:05
[2024-11-22 18:09] LABS: Urine Bacteria None Seen /hpf (None Seen)
[2024-11-22 18:41] LABS: Urine Blood TRACE /uL (Negative); Urine Clarity Clear (Clear); Urine Color Dark-Yellow (Yellow); Urine Protein, UAD Negative (Negative); Urine Specific Gravity 1.027 (1.001-1.035); Urine Squamous Epithelial Cell FEW /hpf (<5); Urine Urobilinogen Normal (Negative); Urine WBC 16 /HPF (0-5); Urine pH 5.5 (5.0-9.0)
[2024-11-22 18:43] LABS: Amphetamine Screen, Urine Neg (NEGATIVE); Barbiturate Scree,Urine Neg (NEGATIVE); Benzodiazephine Screen, Urine Neg (NEGATIVE); Cannabinoid Screen, Urine Neg (NEGATIVE); Cocaine Screen, Urine Neg (NEGATIVE); Opiate Scree,Urine Neg (NEGATIVE); Phencyclidine Screen, Urine Neg (NEGATIVE)
[2024-11-23 01:00] VITALS: BP 116/59; PULSE 69; RESP 19; TEMP 97.6; O2SAT 96
[2024-11-23 05:00] VITALS: BP 115/58; PULSE 81; RESP 19; TEMP 98.4; O2SAT 94
[2024-11-23 07:52] LABS: Anion Gap 8 (5-15); Carbon Dioxide 27 mmol/L (20-31); Chloride 105 mmol/L (98-107); Potassium 4.8 mmol/L (3.5-5.1); Sodium 140 mmol/L (136-145)
[2024-11-23 07:53] LABS: Calcium 10.1 mg/dL (8.7-10.4)
[2024-11-23 07:58] LABS: BUN/Creatinine Ratio 43.7 (10.0-20.0)
[2024-11-23 08:00] VITALS: PULSE 74; RESP 18; O2SAT 93
[2024-11-23 08:00] LABS: Blood Urea Nitrogen 38 mg/dL (9-23); Glucose 127 mg/dL (74-106)
[2024-11-23 09:00] VITALS: BP 113/50; PULSE 74; RESP 20; TEMP 98; O2SAT 93
--- NOTE | 2024-11-23 09:21 | DVHDSRES ---
Discharge Summary Date of Admission Resident Creating Document: GERTRUDE ODONNELL RESIDENT Nov 21, 2024 at 00:23 Date of Discharge: Nov 23, 2024 Admitting Diagnosis Fall, Intractable knee pain, rule out knee fracture or any other pathology, declining function Labs/Diagnostic Data: Laboratory Results Test 11/23/24 06:45 11/22/24 16:57 11/22/24 05:08 11/21/24 07:34 Sodium Level 140 mmol/L (136-145) Potassium Level 4.8 mmol/L (3.5-5.1) Chloride Level 105 mmol/L (98-107) Carbon Dioxide Level 27 mmol/L (20-31) Anion Gap 8 (5-15) Blood Urea Nitrogen 38 mg/dL (9-23) Creatinine 0.87 mg/dL (0.550-1.02) Glomerular Filtration Rate Calc 72 mL/min (>90) BUN/Creatinine Ratio 43.7 (10.0-20.0) Serum Glucose 127 mg/dL (74-106) Calcium Level 10.1 mg/dL (8.7-10.4) Urine Color Dark-yellow (Yellow) Urine Clarity Clear (Clear) Urine pH 5.5 (5.0-9.0) Urine Specific [place] 1.027 (1.001-1.035) Urine Protein Negative (Negative) Urine Ketones Negative (Negative) Urine Blood Trace /uL (Negative) Urine Nitrite Negative (Negative) Urine Bilirubin 1+ (Negative) Urine Urobilinogen Normal mg/dL (Negative) Urine Leukocyte Esterase Trace /uL (Negative) Urine RBC 13 /hpf (0 - 4) Urine Microscopic WBC 16 /HPF (0-5) Urine Squamous Epithelial Cells Few /hpf (<5) Urine Bacteria None seen /hpf (None Seen) Urine Glucose Normal mg/dL (Normal) Urine Opiates Screen Neg (NEGATIVE) Urine Fentanyl Screen Neg (NEGATIVE) Urine Barbiturates Screen Neg (NEGATIVE) Urine Phencyclidine Screen Neg (NEGATIVE) Urine Amphetamines Screen Neg (NEGATIVE) Urine Benzodiazepines Screen Neg (NEGATIVE) Urine Cocaine Screen Neg (NEGATIVE) Urine Cannabinoids Screen Neg (NEGATIVE) White Blood Count 8.6 10^3/uL (4.4-10.8) Red Blood Count 4.35 10^6/uL (4.0-5.20) Hemoglobin 12.9 g/dL (12.2-16.2) Hematocrit 39.6 % (36.0-46.0) Mean Corpuscular Volume 91.0 fL (80.0-100.0) Mean Corpuscular Hemoglobin 29.7 pg (28.0-32.0) Mean Corpuscular Hemoglobin Concent 32.6 g/dL (32.0-36.0) Red Cell Distribution Width 14.2 % (11.8-14.3) Platelet Count 264 10^3/uL (140-450) Mean Platelet Volume 7.1 fL (6.9-10.8) Neutrophils (%) (Auto) 71.7 % (37.0-80.0) Lymphocytes (%) (Auto) 15.7 % (10.0-50.0) Monocytes (%) (Auto) 9.5 % (0.0-12.0) Eosinophils (%) (Auto) 2.7 % (0.0-7.0) Basophils (%) (Auto) 0.4 % (0.0-2.0) Neutrophils # (Auto) 6.2 10 ^3/uL (1.6-8.6) Lymphocytes # (Auto) 1.4 10 ^3/uL (0.4-5.4) Monocytes # (Auto) 0.8 10 ^3/uL (0-1.3) Eosinophils # (Auto) 0.2 10 ^3/uL (0-0.8) Basophils # (Auto) 0 10 ^3/uL (0-0.2) Nucleated Red Blood Cells 0.1 % Plasma/Serum Blood Alcohol < 3.0 mg/dL (<10) Test 11/21/24 01:07 11/20/24 20:58 Erythrocyte Sedimentation Rate 28 mm/hr (0-20) Hemoglobin A1c 5.9 % A1C (<5.7) Total Bilirubin 0.6 mg/dL (0.2-1.0) Aspartate Amino Transferase (AST) 14 U/L (13-40) Alanine Aminotransferase (ALT) 15 U/L (7-40) Alkaline Phosphatase 107 U/L (46-116) Total Protein 7.1 g/dL (5.7-8.2) Albumin 4.2 g/dL (3.2-4.8) Thyroid Stimulating Hormone (TSH) 0.78 uIU/mL (0.55-4.78) Lactic Acid Level 0.9 mmol/L (0.4-2.0) Creatine Kinase 83 U/L (34-145) Troponin I High Sensitivity 3 ng/L (</=34) C-Reactive Protein High Sensitivity 0.77 mg/dL (<1.0) B-Type Natriuretic Peptide 28.24 pg/mL (0-100) Other Laboratory Tests 11/23/24 06:45 11/22/24 05:08 Brief Hx & Hospital Course: HPI- Patient is 69-year-old female with past medical history of diabetes, hypertension obesity came to the ED because according to her she had a fall today. She stated that she was in the bathroom and trying to reach the commode she had a fall, landing in her buttocks at 3 pm aprox. Patient states that she is not being able to walk for months due to diabetic neuropathy and her knees are swollen since months as well, she stated that a year ago she twisted left knee. She also notes subjective fever,urinary frequency and a rash in her lower abdominal/inguinal area and left upper thigh area. She states that she is unable to perform activities of daily living due to her symptoms, and that her family is unable to care for her at home. Significant lab workup revealed HGB A1c 5.9, troponin negative. Urinalysis revealed UTI. CT lumbosacral spine revealed- Multilevel degenerative changes of the spine disc osteophyte, facet arthropathy uncovertebral spurring causing significant canal narrowing and neural foraminal stenosis. CT cervical spine revealed- Multilevel degenerative changes of the spine. X-ray left knee revealed- Marked joint space narrowing and osteoarthritis. X-ray right knee revealed- Severe tricompartmental degenerative arthrosis of the right knee. CXR-no acute disease. Hospital course-patient came to the hospital due to fall and intractable bilateral knee pain. Patient was admitted to the hospital to rule out any intracranial hemorrhage an rule out bone fracture due to fall and intractable knee pain and UTI with the symptom of dysuria.Significant lab workup revealed HGB A1c 5.9, troponin negative. Urinalysis revealed UTI. CT lumbosacral spine revealed-Multilevel degenerative changes of the spine disc osteophyte, facet arthropathy uncovertebral spurring causing significant canal narrowing and neural foraminal stenosis. CT cervical spine revealed- Multilevel degenerative changes of the spine. X-ray left knee revealed- Marked joint space narrowing and osteoarthritis. X-ray right knee revealed- Severe tricompartmental degenerative arthrosis of the right knee. CXR-no acute disease. Fracture ruled out. Patient was seen by orthopedic surgeon. As per orthopedic surgeon patient is not a surgical candidate. Recommended for also follow up p.r.n.. patient was treated with IV ceftriaxone for UTI. Patient's symptom improved. Patient was evaluated with the physical therapy and recommended for physical therapy in assisted facility. Patient is being discharged to SNF for physical therapy. Patient was prescribed Macrobid 100 mg b.i.d. p.o. for 5 days. Patient's meds were sent to the pharmacy electronically. MD at this name is to follow up with the patient. Patient was hemodynamically stable on discharge. Diagnosis #Mechanical fall #Intractable bilateral knee pain #bone fracture ruled out #Severe bilateral OA in the knees #UTI #H/o HTN #DM type 2 #Diabetic neuropathy? #Severe Physical deconditioning #inguinal rash: contact dermatitis # morbid obesity Discharge plan Macrobid 100 mg p.o. b.i.d. for 5 days Please resume home medications Please be compliant with the medications Please follow up with the MD at the SNF and also follow up with the uterine culture report Please follow up with the orthopedic surgeon as needed Operations or Procedures [place] [address] Ph: [phone] DIAGNOSTIC IMAGING Diagnostic Imaging Report : [id number] Signed PATIENT: DEYANIRA BROWNCCT: [id number] UNIT: [id number] : 1955 LOC: ER ROOM / BED: / AGE / SEX: 69 / F ADM STATUS: REG ER SERVICE 09 ORDERING PHYSICIAN: THELMA PICKENS MD PROCEDURE(s): CXRP - CHEST PORTABLE REASON: gen weak ORDER NUMBER(s): [id number], ACCESSION NUMBER(s): [id number] CHEST RADIOGRAPH Indication: gen weak Technique: Single frontal view of the chest was obtained COMPARISON: None FINDINGS: Lines and Tubes: None Lungs: Clear Pleura: No effusion. No pneumothorax. Cardiomediastinal contours: Cardiomegaly Bones: Unremarkable IMPRESSION: 1. No acute disease. ATED BY: RALPH HENAO MD DICTATED DATE/TIME: 11/20/242053 SIGNED BY: RALPH HENAO MD SIGNED DATE/TIME: 11/20/242053 CC: [place] [id number] Ph: [phone] DIAGNOSTIC IMAGING Diagnostic Imaging Report : [id number] Signed PATIENT: DEYANIRA BROWNCCT: [id number] UNIT: [id number] : 1955 LOC: ER ROOM / BED: / AGE / SEX: 69 / F ADM STATUS: REG ER SERVICE 09 ORDERING PHYSICIAN: THELMA PICKENS MD PROCEDURE(s): RKN3 - R KNEE 3V XRAY REASON: pain ORDER NUMBER(s): [id number], ACCESSION NUMBER(s): [id number] CLINICAL INDICATION: pain TECHNIQUE: 3 views of the right knee. Comparison: None FINDINGS/IMPRESSION: There is no evidence of acute fracture or dislocation. Severe tricompartmental degenerative arthrosis of the right knee. ATED BY: RALPH HENAO MD DICTATED DATE/TIME: 11/20/242054 SIGNED BY: RALPH HENAO MD SIGNED DATE/TIME: 11/20/242054 CC: [place] [address] Ph: [phone] DIAGNOSTIC IMAGING Diagnostic Imaging Report : [id number] Signed PATIENT: DEYANIRA BROWNCCT: [id number] UNIT: [id number] : 1955 LOC: ER ROOM / BED: / AGE / SEX: 69 / F ADM STATUS: REG ER SERVICE 09 ORDERING PHYSICIAN: THELMA PICKENS MD PROCEDURE(s): LKNE3 - L KNEE 3V XRAY REASON: pain ORDER NUMBER(s): [id number], ACCESSION NUMBER(s): [id number] EXAM: XY L KNEE 3V XRAY CLINICAL HISTORY: pain COMPARISON: None TECHNIQUE: XY L KNEE 3V XRAY Findings/Impression: 3 views of the left knee. There is no evidence of an acute fracture, dislocation, blastic, or lytic lesions. Marked joint space narrowing and osteoarthritis. No radiopaque foreign bodies. No joint effusion or superficial soft tissue abnormalities. ATED BY: VERENA JOHNSTON DO DICTATED DATE/TIME: 11/20/242056 SIGNED BY: VERENA JOHNSTON DO SIGNED DATE/TIME: 11/20/242056 CC: [place] [address] Ph: [phone] DIAGNOSTIC IMAGING Diagnostic Imaging Report : [id number] Signed PATIENT: DEYANIRA BROWNCCT: [id number] UNIT: [id number] : 1955 LOC: OVERFLOW ROOM / BED: [address] [place] [address] / A AGE / SEX: 69 / F ADM STATUS: ADM IN SERVICE ORDERING PHYSICIAN: STEPHANIA RICHARD RESIDENT PROCEDURE(s): LS2CT - LS SPINE WO CONTRAST REASON: FALL ORDER NUMBER(s): [id number], ACCESSION NUMBER(s): [id number] EXAM: CT LS SPINE WO CONTRAST HISTORY: FALL COMPARISON: None CTDIvol 38.94 mGy, DLP 2837.7 mGy*cm. TECHNIQUE: Multiple axial CT images of the spine were obtained using bone algorithm. Axial and coronal reformatting was done. Bone and soft tissue windows were reviewed. FINDINGS: No CT evidence of definite acute fracture, spinal dislocation, or significant appearing acute subluxation is seen. The visualized paraspinal soft tissues are grossly unremarkable. Multilevel degenerative changes of the spine disc osteophyte, facet arthropathy uncovertebral spurring causing significant canal narrowing and neural foraminal stenosis. IMPRESSION: 1. No definite CT evidence of acute fracture or dislocation of the bony lumbar spine. 2. Advanced spondylotic change. ATED BY: KARINA GONSALEZ MD DICTATED DATE/TIME: 11/21/24326 SIGNED BY: KARINA GONSALEZ MD SIGNED DATE/TIME: 11/21/24326 CC: [address] [id number] Ph: [phone] DIAGNOSTIC IMAGING Diagnostic Imaging Report : [id number] Signed PATIENT: DEYANIRA BROWNCCT: [id number] UNIT: [id number] : 1955 LOC: OVERFLOW ROOM / BED: [facility]-ER / A AGE / SEX: 69 / F ADM STATUS: ADM IN SERVICE ORDERING PHYSICIAN: STEPHANIA RICHARD RESIDENT PROCEDURE(s): TS2CT - THORACIC SPINE WO CONTRAS REASON: FALL ORDER NUMBER(s): [id number], ACCESSION NUMBER(s): [id number] EXAM: CT THORACIC SPINE WO CONTRAS HISTORY: FALL COMPARISON: None CTDIvol 38.59 mGy, DLP 2837.70 mGy*cm. TECHNIQUE: Multiple axial CT images of the spine were obtained using bone algorithm. Axial and coronal reformatting was done. Bone and soft tissue windows were reviewed. FINDINGS: No CT evidence of definite acute fracture, spinal dislocation, or significant appearing acute subluxation is seen. The visualized paraspinal soft tissues are grossly unremarkable. Multilevel degenerative changes of the spine. IMPRESSION: 1. No definite CT evidence of acute fracture or dislocation of the bony thoracic spine. ATED BY: KARINA GONSALEZ MD DICTATED DATE/TIME: 11/21/24325 SIGNED BY: KARINA GONSALEZ MD SIGNED DATE/TIME: 11/21/24325 CC: Condition at Discharge: Stable Final Diagnosis/Problems List Intractable bilateral knee pain likely due to osteoarthritis Ruled out bone fracture Mechanical fall Decreased ADL #bone fracture ruled out Severe tricompartmental degenerative arthrosis of the right knee. Marked joint space narrowing and osteoarthritis left knee. Multilevel degenerative changes of the spine. #UTI #H/o HTN #DM type 2 #Diabetic neuropathy? #Severe Physical deconditioning #Severe bilateral OA in the knees #inguinal rash: contact dermatitis Discharge Disposition: [facility] Facility Discharge Instruct/Medications Diet: Cardiac 2g Na,low cholest Activity: Light activity Follow Up/Referral: Please follow up with the MD at the sniff Medications: Macrobid 100 mg p.o. b.i.d. for 5 days Please resume home medication Discharge Statement: "Patient was advised to return to the ER or call 911 if any headaches, dizziness, shortness of breath, chest pain, abdominal pain, bleeding, fevers, or worsening of medical condition. Patient was counseled about treatment plan, medications, possible side effects, patientverbalized understanding. All questions were answered to the best of my ability. This discharge took greater then 30 minutes in planning, reviewing documentation, counseling the patient, and discussing with other team members." ASSESSMENT ASSESSMENT Assessment Intractable bilateral knee pain likely due to osteoarthritis Rule out fracture Mechanical fall Decreased ADLS Date of Service: Nov 23, 2024 Billing Provider: SHU BYRNES MD Common Visit Codes: [id number] DISCH DAY >30min GERTRUDE ODONNELL RESIDENT Nov 23, 2024 09:21 SHU BYRNES MD Dec 04, 2024 02:02
[2024-11-23] MEDS ORDERED: NITR-87 PO (10:58)
[2024-11-23 13:00] VITALS: BP 127/73; PULSE 65; RESP 20; TEMP 97.9; O2SAT 95
[2024-11-23 13:21] VITALS: BP 113/80; PULSE 74; RESP 20; TEMP 98; O2SAT 93
== END 2024-11-23 15:00 | DRG 554 ==
LOC: ER 18:49 → EDBD 18:49 → OVERFLOW 11-21 00:23 → WEST WING 11-21 22:05
PROVIDERS: ADMIT Student in an Organized Health Care Education/Training Program; ATTEND Emergency Medicine
DX: M17.0 Bilateral primary osteoarthritis of knee (principal); L03.116 Cellulitis of left lower limb; N39.0 Urinary tract infection, site not specified; L03.314 Cellulitis of groin; Z68.43 Body mass index [BMI] 50.0-59.9, adult; E11.40 Type 2 diabetes mellitus with diabetic neuropathy, unspecified; E66.01 Morbid (severe) obesity due to excess calories; I10 Essential (primary) hypertension; L25.9 Unspecified contact dermatitis, unspecified cause; K21.9 Gastro-esophageal reflux disease without esophagitis; Z99.3 Dependence on wheelchair; Z79.2 Long term (current) use of antibiotics; Z79.899 Other long term (current) drug therapy; Z80.0 Family history of malignant neoplasm of digestive organs; Z82.49 Family history of ischemic heart disease and other diseases of the circulatory system; Z80.1 Family history of malignant neoplasm of trachea, bronchus and lung; Z79.82 Long term (current) use of aspirin
CPT/HCPCS: 36415; 71045; 72128; 72131; 73562; 80048; 80053; 80307; 80320; 81001; 82550; 83036; 83605; 83880; 84443; 84484; 85025; 85652; 86141; 87040; 87086; 87088; 87186; 97110; 97163; 97530; G0378; J1885